=== PATIENT | male | born 2005 | race Caucasian/White ===

== ENCOUNTER 2024-05-01 01:55 | Emergency (ER) | payer BC ==
[2024-05-01] MEDS ORDERED: Acetaminophen 325 MG TAB ONE (02:25)
== END 2024-05-01 04:50 | disposition home or self-care (01) ==
LOC: CSHERS 01:55
DX: S09.90XA Unspecified injury of head, initial encounter (principal); F17.290 Nicotine dependence, other tobacco product, uncomplicated; W18.09XA Striking against other object with subsequent fall, initial encounter
CPT/HCPCS: 70450; 72125